=== PATIENT | male | born 1985 | race Caucasian/White ===

== ENCOUNTER 2016-05-26 11:26 | Emergency (ER) | payer OTHER ==
[2016-05-26] MEDS ORDERED: LIDOCAINE 2% W/EPIN INJ 20ML **PRES FREE As Ordered ONE (12:33)
[2016-05-26] MEDS ORDERED: MAXITROL OPHTH OINT 3.5 GM XX ONE (14:00)
[2016-05-26] MEDS ORDERED: KETOROLAC 30 MG/ML VIAL (J1885) As Ordered ONE (14:59)
--- NOTE | 2016-05-26 15:16 | EDDOCDS ---
Physician Documentation [facility] Name: Andreas Romero Age: 30 yrs Sex: Male : 1985 Arrival Date: 05/26/2016 Time: 11:26 Bed 2 Private MD: Disposition: 05/26/16 14:51 Discharged to Home/Self Care. Impression: Laceration without foreign body of left eyelid and periocular area. - Condition is Stable. - Discharge Instructions: Facial Laceration, Laceration Care, Adult, [id number]. - Prescriptions for Keflex 500 mg Oral Capsule - take 1 capsule by ORAL route every 8 hours for 10 days; 30 capsule. Diclofenac Sodium 75 mg Oral Tablet, Delayed Release (E.C.) - take 1 tablet by ORAL route 2 times per day; 30 tablet. Medrol (Simón) 4 mg Oral Tablets, Dose Pack - take 1 Pack by ORAL route as directed - follow package instructions; 1 packet. - Medication Reconciliation, Local Pharmacy Hours form. - Follow up: Evelin Ascencio; When: 1 - 2 days; Reason: Further diagnostic work-up, Recheck today's complaints, Continuance of care. - Problem is new. - Symptoms have improved. Historical: - Allergies: Amoxicillin (Swelling); SULFA (SULFONAMIDES) (Unknown); - Home Meds: 1. none - PMHx: none; - PSHx: right hand tendon; right AC joint; Tonsillectomy; - Social history: Smoking status: Patient states was never smoker of tobacco. No barriers to communication noted, The patient speaks fluent Syriac. - Family history: Not pertinent. - : The pt / caregiver states he / she is not on anticoagulants. Home medication list is obtained from the patient. - Exposure Risk Screening:: None identified. Vital Signs: 05/26 11:37 BP 146 / 93; Pulse 79; Resp 18; Temp 97.8(O); Pulse Ox 96% on R/A; Pain 8/10; jjr 14:50 BP 149 / 95; Pulse 66; Resp 20; Temp 97.6; Pulse Ox 97% ; Pain 9/10; jlf 15:10 BP 148 / 90; Pulse 67; Resp 18; Temp 98.7(O); Pulse Ox 98% on R/A; Pain 9/10; kc3 Visual Acuity: 12:24 Left Eye Visual acuity 20/30, ; Right Eye Visual acuity 20/20, ; Both Eyes Visual jjr acuity 20/25; Without Lenses; MDM: 12:00 Visual Acuity ordered. btw 12:30 Financial registration complete. lg 12:31 [facility] Payment Agreement was scanned into [employer] and attached to record. lg 12:33 Lidocaine-Epinephrine 2 %-1:100,000 10 ml Infiltration once; to bedside ordered. cc10 13:40 maxitrol opth oint. 1 applic Topical now ordered. kcs 14:53 ketorolac 30 mg IM once ordered. btw 15:10 T-Sheet-- Draft Copy was scanned into [employer] and attached to record. gb Administered Medications: 12:53 Drug: Lidocaine-Epinephrine 10 ml [lidocaine 20 mg/mL (2 %)-epinephrine 1:100,000 jjr injection solution (10 mL)] {Note: administered by Dr Sofia.} Route: Infiltration; 14:55 Drug: maxitrol opth oint. 1 applic {Note: administered by MD.} Route: Topical; Site: kc3 face; 15:14 Drug: ketorolac 30 mg [ketorolac 30 mg/mL (1 mL) injection solution (1 mL)] {Note: pt kc3 permitted to leave before the 15 min observation time per PA. Miguelito .} Route: IM; Site: left deltoid; Signatures: Emelia Bean RN RN kcs Barnhardt, Gloria, Reg Reg gb Kadeem Wright, Reg Reg lg Tania Grant RN RN jjr Wolfenden, Brandon, PA PA btw Coniski, Colin, PA-Tiffanie PA-Tiffanie ccAkila Campos RN RN kc3 The chart was reviewed and I authenticate all verbal orders and agree with the evaluation and treatment provided.Attachments: 12:31 [facility] Payment Agreement lg 15:10 T-Sheet-- Draft Copy gb MTDD
--- NOTE | 2016-05-26 15:16 | EDDOCDS ---
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 Mechanism of Injury: Laceration sustained while playing sports. The patient denies any loss of vision. Adult Sepsis Screening: The patient does not have new or worsening altered mentation. Patient's respiratory rate is less than 22. Systolic blood pressure is greater than 100. Patient has a qSOFA score of 0- Negative Sepsis Screen. Suicide/Homicide risk assessment- the patient denies having any suicidal and/or homicidal ideations and does not present with any other emotional, behavioral or mental health complaints. 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 Transition of care: patient was not received from another setting of care. 11:36 Acuity: FARHAN Level 3 jjr 11:36 Method Of Arrival: Ambulance jjr Triage Assessment: 11:39 General: Appears in no apparent distress. Pain: Location: left eye. Pt Declines HIV jjr testing. EENT: horizontal laceration almost entire length of left eyelid. Historical: - Allergies: Amoxicillin (Swelling); SULFA (SULFONAMIDES) (Unknown); - Home Meds: 1. none - PMHx: none; - PSHx: right hand tendon; right AC joint; Tonsillectomy; - Social history: Smoking status: Patient states was never smoker of tobacco. No barriers to communication noted, The patient speaks fluent Panamanian. - Family history: Not pertinent. - : The pt / caregiver states he / she is not on anticoagulants. Home medication list is obtained from the patient. - Exposure Risk Screening:: None identified. Screenin:25 Screening information is obtained from the patient. Fall risk: No risks identified. jjr Assistance ADL's: requires no assistance with activities of daily living. Abuse/DV Screen: The patient / caregiver reports he/she is: not in a situation that causes fear, pain or injury. Nutritional screening: No deficits noted. Advance Directives: There is no active DNR order. home support is adequate. Assessment: 12:25 General: Appears in no apparent distress, left eyelid laceration continues to bleed jjr from outer edge. 13:40 General: MD at bedside. . kc3 14:20 General: MD remains at bedside suturing. . kc3 15:14 General: Appears in no apparent distress, comfortable, Behavior is appropriate for age, kc3 cooperative. Neurological: Level of Consciousness is awake, alert, obeys commands. Respiratory: Respiratory effort is even, unlabored. Derm: Skin is pink, warm & dry. Dressing with patch to left eye. Vital Signs: 11:37 BP 146 / 93; Pulse 79; Resp 18; Temp 97.8(O); Pulse Ox 96% on R/A; Pain 8/10; jjr 14:50 BP 149 / 95; Pulse 66; Resp 20; Temp 97.6; Pulse Ox 97% ; Pain 9/10; jlf 15:10 BP 148 / 90; Pulse 67; Resp 18; Temp 98.7(O); Pulse Ox 98% on R/A; Pain 9/10; kc3 Vitals: 11:37 Log In Time N/A - ambulance arrival. jjr Visual Acuity: 12:24 Left Eye Visual acuity 20/30, ; Right Eye Visual acuity 20/20, ; Both Eyes Visual jjr acuity 20/25; Without Lenses; ED Course: 11:28 Patient visited by Viola Blandon Unit Clerk. deg 11:28 Patient moved to Waiting deg 11:29 Patient moved to I rs6 11:37 Teto Banegas PA is PHCP. btw 11:37 Lida Smiley MD is Attending Physician. btw 11:37 Patient visited by Teto Banegas PA. btw 11:37 Triage Initiated jjr 12:26 Patient visited by Tania Grant RN. jjr 12:26 The patient / caregiver is instructed regarding the plan of care and ED course. jjr 12:28 Patient name changed from Andreas\S\\S\[place]\S\ to Andreas\S\[place]\S\[place]. EDMS 12:30 Assist provider with laceration repair using sutures, Performed by Yair Sofia Set up [facility] tray. Dressed with 4X4s, EYE PADS Patient tolerated well. 12:31 [facility] Payment Agreement was scanned into [employer] and attached to record. lg 12:37 Tania Grant, RN is Primary Nurse. btw 12:37 Patient moved to 2 btw 12:42 Patient visited by Tram Trejo, JAY. rs6 14:50 Patient visited by Magda Henderson PCA. jlf 14:50 Evelin Ascencio is Referral Physician. btw 14:51 Patient visited by Magda Henderson PCA. jlf 14:51 Wound care to laceration located on face and left eye was cleaned with Betadine, jl Patient tolerated well. 15:10 T-Sheet-- Draft Copy was scanned into [employer] and attached to record. gb 15:12 No IV's were initiated during this patient's visit. kc3 Administered Medications: 12:53 Drug: Lidocaine-Epinephrine 10 ml [lidocaine 20 mg/mL (2 %)-epinephrine 1:100,000 jjr injection solution (10 mL)] {Note: administered by Dr Sofia.} Route: Infiltration; 14:55 Drug: maxitrol opth oint. 1 applic {Note: administered by .} Route: Topical; Site: kc3 face; 15:14 Drug: ketorolac 30 mg [ketorolac 30 mg/mL (1 mL) injection solution (1 mL)] {Note: pt kc3 permitted to leave before the 15 min observation time per PA. Miguelito .} Route: IM; Site: left deltoid; Order Results: There are currently no results for this order. Outcome: 14:51 Discharge ordered by Provider. btw 15:13 Discharge Assessment: Patient awake, alert and oriented x 3. No cognitive and/or kc3 functional deficits noted. Patient verbalized understanding of disposition instructions. patient administered narcotics - no. The following High Risk Discharge criteria are identified: None. Discharged to home ambulatory. Condition: stable. No special radiology studies were completed. Property :Personal belongings accompany Pt. 15:15 Patient left the ED. kc3 Signatures: Dispatcher [employer] EDMS Viola Blandon, University Counselor Unit deg Aleyda Neil, Reg Reg Eddy Riose, Reg Reg lg Tania Grant, RN RN jjr Teto Banegas PA PA btw Magda Henderson, PLATE STRAIGHTENER PLATE STRAIGHTENER jlf Tram Trejo, PLATE STRAIGHTENER PLATE STRAIGHTENER rs6 Akila Sofia,RN RN kc3 MTDD
--- NOTE | 2016-05-28 16:16 | EDDOCDS ---
Physician Documentation [facility] Name: Andreas Romero Age: 30 yrs Sex: Male : 1985 Arrival Date: 05/26/2016 Time: 11:26 Bed 2 Private MD: Disposition: 05/26/16 14:51 Discharged to Home/Self Care. Impression: Laceration without foreign body of left eyelid and periocular area. - Condition is Stable. - Discharge Instructions: Facial Laceration, Laceration Care, Adult, [id number]. - Prescriptions for Keflex 500 mg Oral Capsule - take 1 capsule by ORAL route every 8 hours for 10 days; 30 capsule. Diclofenac Sodium 75 mg Oral Tablet, Delayed Release (E.C.) - take 1 tablet by ORAL route 2 times per day; 30 tablet. Medrol (Simón) 4 mg Oral Tablets, Dose Pack - take 1 Pack by ORAL route as directed - follow package instructions; 1 packet. - Medication Reconciliation, Local Pharmacy Hours form. - Follow up: Evelin Ascencio; When: 1 - 2 days; Reason: Further diagnostic work-up, Recheck today's complaints, Continuance of care. - Problem is new. - Symptoms have improved. Historical: - Allergies: Amoxicillin (Swelling); SULFA (SULFONAMIDES) (Unknown); - Home Meds: 1. none - PMHx: none; - PSHx: right hand tendon; right AC joint; Tonsillectomy; - Social history: Smoking status: Patient states was never smoker of tobacco. No barriers to communication noted, The patient speaks fluent Icelandic. - Family history: Not pertinent. - : The pt / caregiver states he / she is not on anticoagulants. Home medication list is obtained from the patient. - Exposure Risk Screening:: None identified. Vital Signs: 05/26 11:37 BP 146 / 93; Pulse 79; Resp 18; Temp 97.8(O); Pulse Ox 96% on R/A; Pain 8/10; jjr 14:50 BP 149 / 95; Pulse 66; Resp 20; Temp 97.6; Pulse Ox 97% ; Pain 9/10; jlf 15:10 BP 148 / 90; Pulse 67; Resp 18; Temp 98.7(O); Pulse Ox 98% on R/A; Pain 9/10; kc3 Visual Acuity: 12:24 Left Eye Visual acuity 20/30, ; Right Eye Visual acuity 20/20, ; Both Eyes Visual jjr acuity 20/25; Without Lenses; MDM: 12:00 Visual Acuity ordered. btw 12:30 Financial registration complete. lg 12:31 [facility] Payment Agreement was scanned into [employer] and attached to record. lg 12:33 Lidocaine-Epinephrine 2 %-1:100,000 10 ml Infiltration once; to bedside ordered. cc10 13:40 maxitrol opth oint. 1 applic Topical now ordered. kcs 14:53 ketorolac 30 mg IM once ordered. btw 15:10 T-Sheet-- Draft Copy was scanned into [employer] and attached to record. gb Administered Medications: 12:53 Drug: Lidocaine-Epinephrine 10 ml [lidocaine 20 mg/mL (2 %)-epinephrine 1:100,000 jjr injection solution (10 mL)] {Note: administered by Dr Sofia.} Route: Infiltration; 14:55 Drug: maxitrol opth oint. 1 applic {Note: administered by MD.} Route: Topical; Site: kc3 face; 15:14 Drug: ketorolac 30 mg [ketorolac 30 mg/mL (1 mL) injection solution (1 mL)] {Note: pt kc3 permitted to leave before the 15 min observation time per PA. Miguelito .} Route: IM; Site: left deltoid; Signatures: Emelia Bean RN RN kcs Barnhardt, Gloria, Reg Reg gb Kadeem Wright, Reg Reg lg Tania Grant RN RN jjr Wolfenden, Brandon, PA PA btw Coniski, Colin, PA-Tiffanie PA-Tiffanie ccAklia Campos RN RN kc3 The chart was reviewed and I authenticate all verbal orders and agree with the evaluation and treatment provided.Attachments: 12:31 [facility] Payment Agreement lg 15:10 T-Sheet-- Draft Copy gb Chart Complete MTDD
--- NOTE | 2016-05-28 16:16 | EDDOCDS ---
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 Mechanism of Injury: Laceration sustained while playing sports. The patient denies any loss of vision. Adult Sepsis Screening: The patient does not have new or worsening altered mentation. Patient's respiratory rate is less than 22. Systolic blood pressure is greater than 100. Patient has a qSOFA score of 0- Negative Sepsis Screen. Suicide/Homicide risk assessment- the patient denies having any suicidal and/or homicidal ideations and does not present with any other emotional, behavioral or mental health complaints. Status: Patient is not a service center specialist or dependent. Transition of care: patient was not received from another setting of care. 11:36 Acuity: FARHAN Level 3 jjr 11:36 Method Of Arrival: Ambulance jjr Triage Assessment: 11:39 General: Appears in no apparent distress. Pain: Location: left eye. Pt Declines HIV jjr testing. EENT: horizontal laceration almost entire length of left eyelid. Historical: - Allergies: Amoxicillin (Swelling); SULFA (SULFONAMIDES) (Unknown); - Home Meds: 1. none - PMHx: none; - PSHx: right hand tendon; right AC joint; Tonsillectomy; - Social history: Smoking status: Patient states was never smoker of tobacco. No barriers to communication noted, The patient speaks fluent Cymro. - Family history: Not pertinent. - : The pt / caregiver states he / she is not on anticoagulants. Home medication list is obtained from the patient. - Exposure Risk Screening:: None identified. Screenin:25 Screening information is obtained from the patient. Fall risk: No risks identified. jjr Assistance ADL's: requires no assistance with activities of daily living. Abuse/DV Screen: The patient / caregiver reports he/she is: not in a situation that causes fear, pain or injury. Nutritional screening: No deficits noted. Advance Directives: There is no active DNR order. home support is adequate. Assessment: 12:25 General: Appears in no apparent distress, left eyelid laceration continues to bleed jjr from outer edge. 13:40 General: MD at bedside. . kc3 14:20 General: MD remains at bedside suturing. . kc3 15:14 General: Appears in no apparent distress, comfortable, Behavior is appropriate for age, kc3 cooperative. Neurological: Level of Consciousness is awake, alert, obeys commands. Respiratory: Respiratory effort is even, unlabored. Derm: Skin is pink, warm & dry. Dressing with patch to left eye. Vital Signs: 11:37 BP 146 / 93; Pulse 79; Resp 18; Temp 97.8(O); Pulse Ox 96% on R/A; Pain 8/10; jjr 14:50 BP 149 / 95; Pulse 66; Resp 20; Temp 97.6; Pulse Ox 97% ; Pain 9/10; jlf 15:10 BP 148 / 90; Pulse 67; Resp 18; Temp 98.7(O); Pulse Ox 98% on R/A; Pain 9/10; kc3 Vitals: 11:37 Log In Time N/A - ambulance arrival. jjr Visual Acuity: 12:24 Left Eye Visual acuity 20/30, ; Right Eye Visual acuity 20/20, ; Both Eyes Visual jjr acuity 20/25; Without Lenses; ED Course: 11:28 Patient visited by Viola Blandon Unit Clerk. deg 11:28 Patient moved to Waiting deg 11:29 Patient moved to I rs6 11:37 Teto Banegas PA is PHCP. btw 11:37 Lida Smiley MD is Attending Physician. btw 11:37 Patient visited by Teto Banegas PA. btw 11:37 Triage Initiated jjr 12:26 Patient visited by Tania Grant RN. jjr 12:26 The patient / caregiver is instructed regarding the plan of care and ED course. jjr 12:28 Patient name changed from Andreas\S\\S\[facility]\S\ to Andreas\S\[place]\S\[facility]. EDMS 12:30 Assist provider with laceration repair using sutures, Performed by Yair Sofia Set up [facility] tray. Dressed with 4X4s, EYE PADS Patient tolerated well. 12:31 [facility] Payment Agreement was scanned into [employer] and attached to record. lg 12:37 Tania Grant, RN is Primary Nurse. btw 12:37 Patient moved to 2 btw 12:42 Patient visited by Tram Trejo, JAY. rs6 14:50 Patient visited by Magda Henderson PCA. jlf 14:50 Evelin Ascencio is Referral Physician. btw 14:51 Patient visited by Magda Henderson PCA. jlf 14:51 Wound care to laceration located on face and left eye was cleaned with Betadine, jl Patient tolerated well. 15:10 T-Sheet-- Draft Copy was scanned into [employer] and attached to record. gb 15:12 No IV's were initiated during this patient's visit. kc3 Administered Medications: 12:53 Drug: Lidocaine-Epinephrine 10 ml [lidocaine 20 mg/mL (2 %)-epinephrine 1:100,000 jjr injection solution (10 mL)] {Note: administered by Dr Sofia.} Route: Infiltration; 14:55 Drug: maxitrol opth oint. 1 applic {Note: administered by .} Route: Topical; Site: kc3 face; 15:14 Drug: ketorolac 30 mg [ketorolac 30 mg/mL (1 mL) injection solution (1 mL)] {Note: pt kc3 permitted to leave before the 15 min observation time per PA. Miguelito .} Route: IM; Site: left deltoid; Order Results: There are currently no results for this order. Outcome: 14:51 Discharge ordered by Provider. btw 15:13 Discharge Assessment: Patient awake, alert and oriented x 3. No cognitive and/or kc3 functional deficits noted. Patient verbalized understanding of disposition instructions. patient administered narcotics - no. The following High Risk Discharge criteria are identified: None. Discharged to home ambulatory. Condition: stable. No special radiology studies were completed. Property :Personal belongings accompany Pt. 15:15 Patient left the ED. kc3 Signatures: Dispatcher [employer] EDMS Vioal Blandon, Custom Shop Worker Unit deg Aleyda Neil, Reg Reg Eddy Riose, Reg Reg lg Tania Grant, RN RN jjr Teto Banegas PA PA btw Magda Henderson, MAINSTREAMING FACILITATOR MAINSTREAMING FACILITATOR jlf Tram Trejo, MAINSTREAMING FACILITATOR MAINSTREAMING FACILITATOR rs6 Akila Sofia,RN RN kc3 Chart Complete MTDD
--- NOTE | 2016-05-28 16:16 | EDDOCDS ---
Physician Documentation [facility] Name: Andreas Romero Age: 30 yrs Sex: Male : 1985 Arrival Date: 05/26/2016 Time: 11:26 Bed 2 Private MD: Disposition: 05/26/16 14:51 Discharged to Home/Self Care. Impression: Laceration without foreign body of left eyelid and periocular area. - Condition is Stable. - Discharge Instructions: Facial Laceration, Laceration Care, Adult, [id number]. - Prescriptions for Keflex 500 mg Oral Capsule - take 1 capsule by ORAL route every 8 hours for 10 days; 30 capsule. Diclofenac Sodium 75 mg Oral Tablet, Delayed Release (E.C.) - take 1 tablet by ORAL route 2 times per day; 30 tablet. Medrol (Simón) 4 mg Oral Tablets, Dose Pack - take 1 Pack by ORAL route as directed - follow package instructions; 1 packet. - Medication Reconciliation, Local Pharmacy Hours form. - Follow up: Evelin Ascencio; When: 1 - 2 days; Reason: Further diagnostic work-up, Recheck today's complaints, Continuance of care. - Problem is new. - Symptoms have improved. Historical: - Allergies: Amoxicillin (Swelling); SULFA (SULFONAMIDES) (Unknown); - Home Meds: 1. none - PMHx: none; - PSHx: right hand tendon; right AC joint; Tonsillectomy; - Social history: Smoking status: Patient states was never smoker of tobacco. No barriers to communication noted, The patient speaks fluent Wolof. - Family history: Not pertinent. - : The pt / caregiver states he / she is not on anticoagulants. Home medication list is obtained from the patient. - Exposure Risk Screening:: None identified. Vital Signs: 05/26 11:37 BP 146 / 93; Pulse 79; Resp 18; Temp 97.8(O); Pulse Ox 96% on R/A; Pain 8/10; jjr 14:50 BP 149 / 95; Pulse 66; Resp 20; Temp 97.6; Pulse Ox 97% ; Pain 9/10; jlf 15:10 BP 148 / 90; Pulse 67; Resp 18; Temp 98.7(O); Pulse Ox 98% on R/A; Pain 9/10; kc3 Visual Acuity: 12:24 Left Eye Visual acuity 20/30, ; Right Eye Visual acuity 20/20, ; Both Eyes Visual jjr acuity 20/25; Without Lenses; MDM: 12:00 Visual Acuity ordered. btw 12:30 Financial registration complete. lg 12:31 REPLACED BY [facility] Payment Agreement was scanned into [employer] and attached to record. lg 12:33 Lidocaine-Epinephrine 2 %-1:100,000 10 ml Infiltration once; to bedside ordered. cc10 13:40 maxitrol opth oint. 1 applic Topical now ordered. kcs 14:53 ketorolac 30 mg IM once ordered. btw 15:10 T-Sheet-- Draft Copy was scanned into [employer] and attached to record. gb Administered Medications: 12:53 Drug: Lidocaine-Epinephrine 10 ml [lidocaine 20 mg/mL (2 %)-epinephrine 1:100,000 jjr injection solution (10 mL)] {Note: administered by Dr Sofia.} Route: Infiltration; 14:55 Drug: maxitrol opth oint. 1 applic {Note: administered by MD.} Route: Topical; Site: kc3 face; 15:14 Drug: ketorolac 30 mg [ketorolac 30 mg/mL (1 mL) injection solution (1 mL)] {Note: pt kc3 permitted to leave before the 15 min observation time per PA. Miguelito .} Route: IM; Site: left deltoid; Signatures: Emelia Bean RN RN kcs Barnhardt, Gloria, Reg Reg gb Kaedem Wright, Reg Reg lg Tania Grant RN RN jjr Wolfenden, Brandon, PA PA btw Coniski, Colin, PA-Tiffanie PA-Tiffanie ccAkila Campos RN RN kc3 The chart was reviewed and I authenticate all verbal orders and agree with the evaluation and treatment provided.Attachments: 12:31 REPLACED BY [facility] Payment Agreement lg 15:10 T-Sheet-- Draft Copy gb Chart Complete MTDD
== END 2016-05-26 15:15 | disposition home or self-care (01) ==
LOC: M ED 11:26
DX: S01.112A Laceration without foreign body of left eyelid and periocular area, initial encounter (principal); W50.0XXA Accidental hit or strike by another person, initial encounter; Y92.330 Ice skating rink (indoor) (outdoor) as the place of occurrence of the external cause; Y93.22 Activity, ice hockey; Y99.8 Other external cause status; Z88.0 Allergy status to penicillin; Z88.2 Allergy status to sulfonamides
CPT/HCPCS: 96372; 99284; J1885